=== PATIENT | female | born 1995 | race Caucasian/White ===

== ENCOUNTER 2024-07-30 00:35 | Emergency (ER) | payer BC ==
[2024-07-30 00:54] VITALS: TEMP 98.7; O2SAT 96
--- NOTE | 2024-07-30 01:08 | ERPHSYRPT ---
- History of Present Illness Time Seen by Provider: 07/30/24 01:08 Source: patient Exam Limitations: no limitations Patient Subjective Stated Complaint: one episode of vaginal bleeding, pt is 12 weeks as of this past tuesday, pt states she got up from bed and used the bathroom around midnight and had no bleeding; pt laid back down and felt a "gush". pt states she had some pink tinged blood in her underwear, no cramping Triage Nursing Assessment: pt ambulatory to bed by self, spouse at bedside, pt alert and oriented x3, skin pwd, pt has no complaints at this time, pt denies any pain, no bleeding noted when patient went to bathroom in ED to obtain urine sample. . OB is dr. jane at [facility] History: 28yo @ 12wks by US presents via private vehicle for 1 episode of small volume vaginal bleeding that occurred roughly 30min [employer]. Pt reports she got up from bed to use the restroom, urinated and went back to bed, when she got into bed she had a sensation like she urinated on herself, reports she saw some pinkish blood on her underwear at that time. Pt reports no abdominal pain or cramping, has not had any bleeding up to this point. Pt reports she had intercourse earlier in the day. Pt denies any complications of up to this point. Pt currently denies any fevers, cp, soa, n/v/d. Timing/Duration: today Activites at Onset: rest Severity of Pain-Max: none Severity of Pain-Current: none Prior abdominal problems: none Allergies/Adverse Reactions: No Known Drug Allergies Allergy (Verified 07/30/24 00:46) Home Medications: Pnv No.103/Folic/Om3s/Fish Oil [ Gummies] 1 tab PO DAILY 07/30/24 [History] hydroCHLOROthiazide [Hydrochlorothiazide] 1 tab PO DAILY 07/30/24 [History] Hx Tetanus, Diphtheria Vaccination/Date Given: Yes Hx Influenza Vaccination/Date Given: Yes Hx Pneumococcal Vaccination/Date Given: No Travel Risk - International Travel Have you traveled outside of the country in past 3 weeks: No - Emerging Infectious Disease Are you exhibiting symptoms associated with any current EIDs: No - Review of Systems Constitutional: No Symptoms Respiratory: No Symptoms Cardiac: No Symptoms Abdominal/Gastrointestinal: No Symptoms Genitourinary Symptoms: , Vaginal Bleeding - Past Medical History Pertinent Past Medical History: Yes Neurological History: No Pertinent History ENT History: No Pertinent History Cardiac History: Hypertension Respiratory History: No Pertinent History Endocrine Medical History: No Pertinent History Musculoskeletal History: No Pertinent History GI Medical History: GERD History: No Pertinent History Psycho-Social History: No Pertinent History Female Reproductive Disorders: Other Other Medical History: dermoid cyst on R ovary - Past Surgical History Past Surgical History: No Neuro Surgical History: No Pertinent History Cardiac: No Pertinent History Respiratory: No Pertinent History Gastrointestinal: No Pertinent History Genitourinary: No Pertinent History Musculoskeletal: No Pertinent History Female Surgical History: No Pertinent History - Female History Hx Now: Yes Gestational Age: 13 - Social History Smoking Status: Never smoker Exposure to second hand smoke: No Drug Use: none - Social Determinants of Health Will the patient participate in the screening: Declined to provide - Nursing Vital Signs Nursing Vital Signs: Initial Vital Signs Temperature 98.7 F 07/30/24 00:50 Pulse Rate 100 H 07/30/24 00:50 Respiratory Rate 18 07/30/24 00:50 Blood Pressure 90/70 07/30/24 00:50 O2 Sat by Pulse Oximetry 96 07/30/24 00:50 Pain Scale Pain Intensity 0 - Physical Exam General Appearance: no apparent distress, alert Respiratory Exam: normal breath sounds, airway intact, No respiratory distress Cardiovascular Exam: regular rate/rhythm Gastrointestinal/Abdomen Exam: soft, normal bowel sounds, No tenderness, No distention, No guarding Pelvic Exam: normal external exam, vaginal bleeding (small volume dark blood in posterior fornix, no clots present, cervix closed non-erythematous, ), No cervical motion tenderness, No uterine tenderness, No vaginal discharge SpO2 Interpretation: normal SpO2: 96 O2 Delivery: Room Air Ordered Tests: Active Orders 24 hr Category Date Time Status CULTURE,URINE Stat Lab 07/30/24 01:02 Received HCG QUALITATIVE, URINE Stat Lab 07/30/24 01:00 Completed UA W/RFX UR CULTURE Stat Lab 07/30/24 01:02 Completed Lab/Rad Data: Laboratory Results 07/30/24 07/30/24 Range/Units 01:02 01:00 Urine Color Yellow (Yellow) Urine Appearance Clear (Clear) Urine pH 6.0 (4.6-8.0) Ur Specific [place] 1.025 (1.005-1.030) Urine Protein 30 (Negative) Urine Glucose (UA) Negative (Negative) mg/dL Urine Ketones Trace A (Negative) Urine Blood Large A (Negative) Urine Nitrite Negative (Negative) Urine Bilirubin Negative (Negative) Urine Urobilinogen 1.0 A (0.2) mg/dL Ur Leukocyte Esterase Small A (Negative) U Hyaline Cast (Auto) NONE SEEN (0-2) /LPF Urine Microscopic RBC >100 A (0-5) /HPF Urine Microscopic WBC 6-10 A (0-5) /HPF Ur Epithelial Cells Few (None Seen) /HPF Urine Bacteria Rare A (None Seen) /HPF Urine Culture Reflexed YES (NO) Urine HCG, Qual POSITIVE (NEGATIVE) - Progress Progress: improved Air Movement: good Progress Note: 07/30/24 01:31 FHR 160 on doppler US 07/30/24 01:43 speculum exam showed minimal dark blood in posterior fornix, no acute bleeding, no bright red blood, no clots, cervix non-irritated and closed likely post-coital bleeding vs first trimester spotting in setting of normal FHR and minimal old blood on speculum exam UA suggestive of UTI and hematuria - will start abx - pt requesting to start abx in the morning, does not want to pay for a dose of abx from the ED tonight plan for discharge home, instructed to call [facility] ([facility]) first thing tomorrow to try to move up appointment return to ED if: develop bright red bleeding from vagina, start passing blood clots from the vagina, develop significant abdominal pain, develop weakness or lightheadedness 07/30/24 01:47 Blood Culture(s) Obtained: No Antibiotics given: No Counseled pt/family regarding: lab results, diagnosis, need for follow-up Medical Desision Making - Diagnostic Testing Diagnostic test were ordered, analyzed, and reviewed by me: Yes - Risk of complications Low Risk: Low risk of morbidity from additional dx testing or treatment - Departure Departure Disposition: Home Clinical Impression: First trimester bleeding UTI (urinary tract infection) Qualifiers: Urinary tract infection type: acute cystitis Hematuria presence: with hematuria Qualified Code(s): N30.01 - Acute cystitis with hematuria Condition: Stable Critical Care Time: No Referrals: ELI BRAGG FNP [Primary Care Provider] - Follow up/PCP as directed Additional Instructions: plan for discharge home, instructed to call [facility] ([facility]) first thing tomorrow to try to move up appointment return to ED if: develop bright red bleeding from vagina, start passing blood clots from the vagina, develop significant abdominal pain, develop weakness or lightheadedness Prescriptions: cephALEXin [Cephalexin] 250 mg PO Q6H 7 Days #28 cap
[2024-07-30 01:10] LABS: Appearance Clear (Clear); Bacteria Rare /HPF (None Seen); Bilirubin Negative (Negative); Blood Large (Negative); Epithelial Cells Few /HPF (None Seen); Glucose, Urine Negative (Negative); Hyaline Casts NONE SEEN /LPF (0-2); Ketones Trace (Negative); Leukocyte Esterase Small (Negative); Nitrite Negative (Negative); Protein,Urine Dip 30 (Negative); RBC >100 /HPF (0-5); Specific Gravity 1.025 (1.005-1.030)
[2024-07-30 01:14] LABS: HCG URINE TEST POSITIVE (NEGATIVE)
[2024-07-30 01:39] VITALS: BP 112/72; PULSE 88; RESP 17
== END 2024-07-30 01:59 | disposition home or self-care (01) ==
LOC: ED 00:35
DX: O20.9 Hemorrhage in early pregnancy, unspecified (principal); O23.11 Infections of bladder in pregnancy, first trimester; N30.01 Acute cystitis with hematuria; Z3A.12 12 weeks gestation of pregnancy; O10.911 Unspecified pre-existing hypertension complicating pregnancy, first trimester; Z79.899 Other long term (current) drug therapy
CPT/HCPCS: 81001; 81025; 87086; 99283; 99284